=== PATIENT | male | born 1990 | race Asian ===

== ENCOUNTER 2019-10-11 17:21 | Inpatient (IN) | payer MEDICAID ==
[~2019-10-11] VITALS: Ht 167.6 cm; Wt 61.0 kg
[2019-10-11 20:00] VITALS: BP 136/79
[2019-10-11] MEDS ORDERED: ZOLPIDEM TARTRATE 5 MG TABLET PO PRN (20:45)
[2019-10-11] MEDS ORDERED: ONDANSETRON HCL 4 MG/2 ML VIAL IVP PRN (20:45)
[2019-10-11] MEDS ORDERED: BISACODYL 10 MG RECTAL RECTAL SUPPOSITORY PR PRN (20:45)
[2019-10-11] MEDS ORDERED: HYDROCODONE/ACETAMINOPHEN 5-325 MG TABLET PO PRN (20:45)
[2019-10-11] MEDS ORDERED: LORazepam 2 MG/ML VIAL IM PRN (20:45)
[2019-10-11] MEDS ORDERED: ACETAMINOPHEN 325 MG TABLET PO PRN (20:45)
[2019-10-11] MEDS ORDERED: MORPHINE SULFATE 2 MG/ML SYRINGE IVP PRN (20:45)
[2019-10-11] MEDS ORDERED: MAGNESIUM HYDROXIDE SUSPENSION 30 ML UDCUP PO PRN (20:45)
[2019-10-11] MEDS: DOCUSATE SODIUM 100 MG CAPSULE PO SCH (21:00)
[2019-10-11] MEDS ORDERED: SODIUM CHLORIDE 0.9% 250 ML IV ONE (21:39)
[2019-10-11] MEDS: PHENYTOIN SODIUM 200 MG in SODIUM CHLORIDE 0.9% 100 ML IV SCH (21:43)
[2019-10-11] MEDS: PHENobarbital SODIUM 65 MG/ML VIAL IVP SCH (21:51)
[2019-10-11] MEDS: LevETIRAcetam 1,500 MG in DEXTROSE 5%-WATER 100 ML IV SCH (22:26)
[2019-10-11] MEDS: PIPERACILLIN SODIUM/TAZOBACTAM 4.5 GM in DEXTROSE 5%-WATER 100 ML IV SCH (22:26)
[2019-10-12] VITALS: BP 139/70
[2019-10-12] MEDS: HEPARIN SODIUM,PORCINE 5,000 UNITS/ML VIAL SQ SCH ×4 (01:01→23:56)
[2019-10-12 04:00] VITALS: BP 123/75
[2019-10-12] MEDS: PIPERACILLIN SODIUM/TAZOBACTAM 4.5 GM in DEXTROSE 5%-WATER 100 ML IV SCH ×3 (04:40→16:47)
[2019-10-12 05:39] LABS: BASOPHILS % (AUTO) 0.8 % (0.0-2.0); EOSINOPHILS % (AUTO) 4.5 % (1.0-6.0); HEMATOCRIT 43.8 % (41-53); HEMOGLOBIN 14.7 g/dL (13.5-17.5); LYMPHOCYTES % (AUTO) 14.9 % (22.0-44.0); MEAN CORPUSCULAR HEMOGLOBIN 31.2 pg (26.0-34.0); MEAN CORPUSCULAR HGB CONC 33.5 G/dL (31.0-37.0); MEAN CORPUSCULAR VOLUME 93 fL (80-100); MONOCYTES % (AUTO) 15.1 % (2.0-9.0); NEUTROPHILS # (AUTO) 4.2 K/uL (1.8-7.7); NEUTROPHILS % (AUTO) 64.7 % (40.0-70.0); PLATELET COUNT (AUTO) 205 K/uL (150-450); RED CELL DISTRIBUTION WIDTH 12.8 % (11.5-14.5)
[2019-10-12 05:47] LABS: ANION GAP 17 mmol/L (8-16); CALCIUM, TOTAL 9.1 mg/dL (8.8-10.5); CARBON DIOXIDE 21 mmol/L (22-29); CHLORIDE 98 mmol/L (98-107); CREATININE 0.86 mg/dL (0.60-1.30); GLOMERULAR FILTR. RATE CALC > 60 mL/min (>60); GLUCOSE,RANDOM 108 mg/dL (70-110); POTASSIUM 3.2 mmol/L (3.5-5.1); SODIUM SERUM 136 mmol/L (136-145); UREA NITROGEN, BLOOD 6 mg/dL (7-18)
[2019-10-12 08:00] VITALS: BP 126/89
[2019-10-12] MEDS: PHENYTOIN SODIUM 200 MG in SODIUM CHLORIDE 0.9% 100 ML IV SCH ×2 (09:58→22:13)
[2019-10-12] MEDS: PANTOPRAZOLE SODIUM 40 MG DR TABLET PO SCH (09:59)
[2019-10-12] MEDS: LevETIRAcetam 1,500 MG in DEXTROSE 5%-WATER 100 ML IV SCH ×2 (09:59→23:41)
[2019-10-12] MEDS: DOCUSATE SODIUM 100 MG CAPSULE PO SCH ×2 (09:59→22:13)
[2019-10-12] MEDS: PHENobarbital SODIUM 65 MG/ML VIAL IVP SCH ×2 (11:52→22:13)
[2019-10-12] MEDS: POTASSIUM CHL 10 MEQ/WATER 50 ML IV PRN ×3 (11:53→14:44)
[2019-10-12 12:00] VITALS: BP 136/92
[2019-10-12 14:35] VITALS: BP 121/76
[2019-10-12 19:22] VITALS: BP 124/76
[2019-10-12] MEDS: POTASSIUM CHLORIDE 20 MEQ ER TABLET PO PRN (22:14)
[2019-10-13] MEDS: PIPERACILLIN SODIUM/TAZOBACTAM 4.5 GM in DEXTROSE 5%-WATER 100 ML IV SCH ×3 (00:07→10:26)
[2019-10-13 00:17] VITALS: BP 128/75
[2019-10-13 04:46] VITALS: BP 127/79
[2019-10-13 07:20] LABS: BASOPHILS % (AUTO) 1.2 % (0.0-2.0); EOSINOPHILS % (AUTO) 4.8 % (1.0-6.0); HEMATOCRIT 43.5 % (41-53); HEMOGLOBIN 14.8 g/dL (13.5-17.5); LYMPHOCYTES % (AUTO) 19.6 % (22.0-44.0); MEAN CORPUSCULAR HEMOGLOBIN 31.4 pg (26.0-34.0); MEAN CORPUSCULAR VOLUME 92 fL (80-100); MONOCYTES % (AUTO) 19.8 % (2.0-9.0); NEUTROPHILS # (AUTO) 2.7 K/uL (1.8-7.7); NEUTROPHILS % (AUTO) 54.6 % (40.0-70.0); PLATELET COUNT (AUTO) 200 K/uL (150-450); RED BLOOD CELL COUNT(AUTO) 4.71 MIL/uL (4.50-5.90); RED CELL DISTRIBUTION WIDTH 12.8 % (11.5-14.5)
[2019-10-13 07:21] VITALS: BP 117/88
[2019-10-13 07:32] LABS: ANION GAP 10 mmol/L (8-16); CALCIUM, TOTAL 8.7 mg/dL (8.8-10.5); CARBON DIOXIDE 26 mmol/L (22-29); CHLORIDE 101 mmol/L (98-107); CREATININE 0.87 mg/dL (0.60-1.30); GLOMERULAR FILTR. RATE CALC > 60 mL/min (>60); GLUCOSE,RANDOM 102 mg/dL (70-110); POTASSIUM 3.7 mmol/L (3.5-5.1); SODIUM SERUM 137 mmol/L (136-145); UREA NITROGEN, BLOOD 8 mg/dL (7-18)
[2019-10-13] MEDS: HEPARIN SODIUM,PORCINE 5,000 UNITS/ML VIAL SQ SCH ×3 (08:00→16:24)
[2019-10-13] MEDS: DOCUSATE SODIUM 100 MG CAPSULE PO SCH ×2 (08:35→21:02)
[2019-10-13] MEDS: PHENYTOIN SODIUM 200 MG in SODIUM CHLORIDE 0.9% 100 ML IV SCH (08:35)
[2019-10-13] MEDS: PANTOPRAZOLE SODIUM 40 MG DR TABLET PO SCH (08:35)
[2019-10-13] MEDS: PHENobarbital SODIUM 65 MG/ML VIAL IVP SCH ×2 (09:57→21:02)
[2019-10-13] MEDS: LevETIRAcetam 1,500 MG in DEXTROSE 5%-WATER 100 ML IV SCH (10:01)
[2019-10-13 11:54] VITALS: BP 110/73
[2019-10-13 15:16] VITALS: BP 120/69
[2019-10-13] MEDS: PIPERACILLIN/TAZO 3.375 GM/D5W 50 ML IV SCH ×2 (16:24→22:17)
[2019-10-13] MEDS ORDERED: SODIUM CHLORIDE 0.9% 100 ML ONE (16:42)
[2019-10-13 20:53] VITALS: BP 119/74
[2019-10-13] MEDS: PHENYTOIN SODIUM 100 MG ER CAPSULE PO SCH (21:02)
[2019-10-13] MEDS: LevETIRAcetam 500 MG TABLET PO SCH (21:03)
[2019-10-14] MEDS: HEPARIN SODIUM,PORCINE 5,000 UNITS/ML VIAL SQ SCH ×3 (00:02→16:38)
[2019-10-14 00:12] VITALS: BP 118/61
[2019-10-14] MEDS: PIPERACILLIN/TAZO 3.375 GM/D5W 50 ML IV SCH ×4 (03:56→22:05)
[2019-10-14 04:48] VITALS: BP 110/63
[2019-10-14 06:49] LABS: ANION GAP 10 mmol/L (8-16); CALCIUM, TOTAL 9.2 mg/dL (8.8-10.5); CARBON DIOXIDE 27 mmol/L (22-29); CHLORIDE 98 mmol/L (98-107); CREATININE 0.91 mg/dL (0.60-1.30); GLOMERULAR FILTR. RATE CALC > 60 mL/min (>60); GLUCOSE,RANDOM 97 mg/dL (70-110); PHENYTOIN (DILANTIN) 16.3 mcg/mL (10.0-20.0); POTASSIUM 3.3 mmol/L (3.5-5.1); SODIUM SERUM 135 mmol/L (136-145); UREA NITROGEN, BLOOD 9 mg/dL (7-18)
[2019-10-14 07:09] LABS: BASOPHILS % (AUTO) 0.8 % (0.0-2.0); EOSINOPHILS % (AUTO) 5.4 % (1.0-6.0); HEMATOCRIT 41.7 % (41-53); HEMOGLOBIN 13.7 g/dL (13.5-17.5); LYMPHOCYTES # (AUTO) 1.3 K/uL (1.0-4.8); LYMPHOCYTES % (AUTO) 28.6 % (22.0-44.0); MEAN CORPUSCULAR HEMOGLOBIN 30.8 pg (26.0-34.0); MEAN CORPUSCULAR VOLUME 93 fL (80-100); MONOCYTES # (AUTO) 1.1 K/uL (0.1-1.0); MONOCYTES % (AUTO) 22.9 % (2.0-9.0); NEUTROPHILS % (AUTO) 42.3 % (40.0-70.0); PLATELET COUNT (AUTO) 206 K/uL (150-450); RED BLOOD CELL COUNT(AUTO) 4.47 MIL/uL (4.50-5.90); RED CELL DISTRIBUTION WIDTH 12.9 % (11.5-14.5)
[2019-10-14 08:00] VITALS: BP 104/57
[2019-10-14] MEDS: PHENYTOIN SODIUM 100 MG ER CAPSULE PO SCH ×2 (09:10→20:07)
[2019-10-14] MEDS: PANTOPRAZOLE SODIUM 40 MG DR TABLET PO SCH (09:10)
[2019-10-14] MEDS: DOCUSATE SODIUM 100 MG CAPSULE PO SCH ×2 (09:10→20:06)
[2019-10-14] MEDS: POTASSIUM CHLORIDE 20 MEQ ER TABLET PO PRN (09:10)
[2019-10-14] MEDS: LevETIRAcetam 500 MG TABLET PO SCH ×2 (09:10→20:06)
[2019-10-14] MEDS: PHENobarbital SODIUM 65 MG/ML VIAL IVP SCH ×2 (10:03→20:06)
[2019-10-14 19:39] VITALS: BP 111/61
[2019-10-14] MEDS ORDERED: LORazepam 2 MG/ML VIAL IVP PRN (20:45)
[2019-10-15 00:04] VITALS: BP 112/76
[2019-10-15] MEDS: HEPARIN SODIUM,PORCINE 5,000 UNITS/ML VIAL SQ SCH ×2 (01:11→08:58)
[2019-10-15] MEDS: PIPERACILLIN/TAZO 3.375 GM/D5W 50 ML IV SCH ×2 (03:01→09:00)
[2019-10-15 04:22] VITALS: BP 140/80
[2019-10-15 07:38] LABS: ANION GAP 13 mmol/L (8-16); CALCIUM, TOTAL 9.1 mg/dL (8.8-10.5); CARBON DIOXIDE 25 mmol/L (22-29); CHLORIDE 98 mmol/L (98-107); CREATININE 0.79 mg/dL (0.60-1.30); GLOMERULAR FILTR. RATE CALC > 60 mL/min (>60); GLUCOSE,RANDOM 97 mg/dL (70-110); POTASSIUM 3.4 mmol/L (3.5-5.1); SODIUM SERUM 136 mmol/L (136-145); UREA NITROGEN, BLOOD 9 mg/dL (7-18)
[2019-10-15 08:00] VITALS: BP 114/71
[2019-10-15] MEDS: PHENobarbital SODIUM 65 MG/ML VIAL IVP SCH (08:59)
[2019-10-15] MEDS: PHENYTOIN SODIUM 100 MG ER CAPSULE PO SCH (08:59)
[2019-10-15] MEDS: PANTOPRAZOLE SODIUM 40 MG DR TABLET PO SCH (08:59)
[2019-10-15] MEDS: POTASSIUM CHLORIDE 20 MEQ ER TABLET PO PRN (08:59)
[2019-10-15] MEDS: DOCUSATE SODIUM 100 MG CAPSULE PO SCH (09:00)
[2019-10-15] MEDS ORDERED: LevETIRAcetam 250 MG TABLET PO SCH (09:00)
[2019-10-15] MEDS ORDERED: LevETIRAcetam 500 MG TABLET PO ONE (10:00)
[2019-10-15] MEDS ORDERED: LevETIRAcetam 500 MG TABLET PO SCH (21:00)
== END 2019-10-15 15:35 | DRG 53 ==
LOC: ICU 19:20 → 5S 10-12 13:30
PROVIDERS: ADMIT Internal Medicine; ATTEND Internal Medicine
DX: G40.909 Epilepsy, unspecified, not intractable, without status epilepticus (principal); J96.00 Acute respiratory failure, unspecified whether with hypoxia or hypercapnia; J69.0 Pneumonitis due to inhalation of food and vomit; G93.41 Metabolic encephalopathy; E87.6 Hypokalemia
CPT/HCPCS: 70544; 84132; 87081; 92610; 97116; 97162; 97166; 97530; 97535; G0378; G0482; J0712; J1165; J1644; J2543; J2560; J3480; J7050; J7060

== ENCOUNTER 2019-10-15 15:39 | Inpatient (IN) | payer MEDICAID ==
[~2019-10-15] VITALS: Ht 167.6 cm; Wt 60.3 kg
[2019-10-15 15:45] VITALS: BP 128/74
[2019-10-15] MEDS ORDERED: ACETAMINOPHEN 325 MG TABLET PO PRN (17:00)
[2019-10-15] MEDS ORDERED: PNEUMOCOCCAL VACCINE POLYVALENT 0.5 ML VIAL [PPSV23] IM ONE (20:00)
[2019-10-15] MEDS ORDERED: INFLUENZA VIRUS VACCINE QVS 2019-20 (3YR+)/PF 60 MCG/0.5 ML SYRINGE IM ONE (20:00)
[2019-10-15] MEDS: SENNA 187 MG TABLET PO SCH ×2 (20:34→21:00)
[2019-10-15] MEDS: DOCUSATE SODIUM 100 MG CAPSULE PO SCH ×2 (20:34→21:00)
[2019-10-15] MEDS: PHENYTOIN SODIUM 100 MG ER CAPSULE PO SCH (20:34)
[2019-10-15] MEDS: HEPARIN SODIUM,PORCINE 5,000 UNITS/ML VIAL SQ SCH (20:35)
[2019-10-15] MEDS: CLINDAMYCIN HCL 300 MG CAPSULE PO SCH (20:35)
[2019-10-15] MEDS: LevETIRAcetam 500 MG TABLET PO SCH (20:35)
[2019-10-15] MEDS: PHENobarbital 30 MG TABLET PO SCH (20:35)
[2019-10-15] MEDS: MELATONIN 3 MG TABLET PO PRN (21:44)
[2019-10-15 23:00] VITALS: BP_SYST 107; BP_SYST 115; BP_DIAS 64; BP_DIAS 68
[2019-10-15] MEDS: 0.9% SODIUM CHLORIDE 10 ML SYRINGE IVP SCH (23:20)
[2019-10-16 06:54] LABS: BASOPHILS % (AUTO) 1.6 % (0.0-2.0); EOSINOPHILS % (AUTO) 4.7 % (1.0-6.0); HEMATOCRIT 42.7 % (41-53); HEMOGLOBIN 14.5 g/dL (13.5-17.5); LYMPHOCYTES # (AUTO) 0.9 K/uL (1.0-4.8); LYMPHOCYTES % (AUTO) 30.5 % (22.0-44.0); MEAN CORPUSCULAR HEMOGLOBIN 31.5 pg (26.0-34.0); MEAN CORPUSCULAR HGB CONC 34.1 G/dL (31.0-37.0); MEAN CORPUSCULAR VOLUME 93 fL (80-100); MONOCYTES # (AUTO) 0.8 K/uL (0.1-1.0); MONOCYTES % (AUTO) 26.8 % (2.0-9.0); NEUTROPHILS # (AUTO) 1.1 K/uL (1.8-7.7); NEUTROPHILS % (AUTO) 36.4 % (40.0-70.0); PLATELET COUNT (AUTO) 180 K/uL (150-450); RED BLOOD CELL COUNT(AUTO) 4.61 MIL/uL (4.50-5.90); RED CELL DISTRIBUTION WIDTH 12.5 % (11.5-14.5)
[2019-10-16 07:09] LABS: ALANINE AMINOTRANSFERASE 78 U/L (12-78); ALBUMIN 3.4 g/dL (3.4-5.0); ALKALINE PHOSPHATASE 133 U/L (46-116); ANION GAP 7 mmol/L (8-16); ASPARTATE AMINOTRANSFERASE 29 U/L (15-37); BILIRUBIN,TOTAL 0.3 mg/dL (0.1-1.0); CALCIUM, TOTAL 8.8 mg/dL (8.8-10.5); CARBON DIOXIDE 27 mmol/L (22-29); CHLORIDE 99 mmol/L (98-107); CREATININE 0.89 mg/dL (0.60-1.30); GLOMERULAR FILTR. RATE CALC > 60 mL/min (>60); GLUCOSE,RANDOM 104 mg/dL (70-110); POTASSIUM 3.7 mmol/L (3.5-5.1); SODIUM SERUM 133 mmol/L (136-145); TOTAL PROTEIN, SERUM 8.2 g/dL (6.4-8.2); UREA NITROGEN, BLOOD 8 mg/dL (7-18)
[2019-10-16 07:59] VITALS: BP 127/64
[2019-10-16] MEDS: PHENobarbital 30 MG TABLET PO SCH ×2 (08:38→21:09)
[2019-10-16] MEDS: PHENYTOIN SODIUM 100 MG ER CAPSULE PO SCH ×2 (08:38→21:09)
[2019-10-16] MEDS: LevETIRAcetam 500 MG TABLET PO SCH ×2 (08:38→21:10)
[2019-10-16] MEDS: HEPARIN SODIUM,PORCINE 5,000 UNITS/ML VIAL SQ SCH ×2 (08:38→21:12)
[2019-10-16] MEDS: CLINDAMYCIN HCL 300 MG CAPSULE PO SCH ×3 (08:38→21:10)
[2019-10-16] MEDS: PANTOPRAZOLE SODIUM 40 MG DR TABLET PO SCH (08:39)
[2019-10-16] MEDS: LEVOFLOXACIN 750 MG TABLET PO SCH (08:39)
[2019-10-16] MEDS: 0.9% SODIUM CHLORIDE 10 ML SYRINGE IVP SCH ×2 (08:40→15:42)
[2019-10-16] MEDS: DOCUSATE SODIUM 100 MG CAPSULE PO SCH ×2 (09:00→21:00)
[2019-10-16 14:39] LABS: APPEARANCE,URINE CLEAR (CLEAR); BILIRUBIN,URINE NEGATIVE (NEGATIVE); GLUCOSE, URINE (UA) NEGATIVE (NEGATIVE); KETONES,URINE NEGATIVE (NEGATIVE); LEUKOCYTE ESTERASE ,URINE NEGATIVE (NEGATIVE); NITRATE,URINE NEGATIVE (NEGATIVE); OCCULT BLOOD,URINE SMALL (NEGATIVE); PH,URINE 6.5 (5.0-8.0); PROTEIN,URINE NEGATIVE (NEGATIVE); UROBILINOGEN,URINE 0.2 mg/dL (<=1.0)
[2019-10-16 14:48] LABS: OSMOLALITY,URINE 34 mOS/kg (50-1200)
[2019-10-16 14:52] LABS: BACTERIA,URINE None Seen /HPF (None Seen); RBC,URINE 0-2 /HPF (0-2); SQUAMOUS EPITHELIAL CELL,UR Rare /LPF (None Seen); WBC,URINE None Seen /HPF (0-5)
[2019-10-16 16:04] VITALS: BP 119/66
[2019-10-16] MEDS: HYDROCORTISONE 1% 30 GM OINTMENT TP PRN (16:19)
[2019-10-16 16:51] LABS: SODIUM,URINE RANDOM < 5 mmol/l (20-110)
[2019-10-16] MEDS: SENNA 187 MG TABLET PO SCH (21:00)
[2019-10-17 02:37] VITALS: BP 122/65
[2019-10-17] MEDS: 0.9% SODIUM CHLORIDE 10 ML SYRINGE IVP SCH ×4 (03:16→23:03)
[2019-10-17 07:36] VITALS: BP 111/64
[2019-10-17] MEDS: PANTOPRAZOLE SODIUM 40 MG DR TABLET PO SCH (07:53)
[2019-10-17] MEDS: CLINDAMYCIN HCL 300 MG CAPSULE PO SCH ×3 (07:53→20:21)
[2019-10-17] MEDS: HEPARIN SODIUM,PORCINE 5,000 UNITS/ML VIAL SQ SCH ×2 (07:53→20:19)
[2019-10-17] MEDS: PHENobarbital 30 MG TABLET PO SCH ×2 (07:53→20:21)
[2019-10-17] MEDS: PHENYTOIN SODIUM 100 MG ER CAPSULE PO SCH ×2 (07:53→20:21)
[2019-10-17] MEDS: LEVOFLOXACIN 750 MG TABLET PO SCH (07:53)
[2019-10-17] MEDS: LevETIRAcetam 500 MG TABLET PO SCH (07:53)
[2019-10-17] MEDS: DOCUSATE SODIUM 100 MG CAPSULE PO SCH ×2 (07:54→20:21)
[2019-10-17 15:30] VITALS: BP 121/84
[2019-10-17] MEDS: MULTIVITAMINS WITH MINERALS, THERAPEUTIC TABLET PO SCH (16:05)
[2019-10-17] MEDS: HYDROCORTISONE 1% 30 GM OINTMENT TP PRN (18:52)
[2019-10-17] MEDS: MELATONIN 3 MG TABLET PO PRN (20:21)
[2019-10-17] MEDS: SENNA 187 MG TABLET PO SCH (20:22)
[2019-10-17 20:34] VITALS: BP 117/80
[2019-10-17 23:34] VITALS: BP 104/70
[2019-10-18 07:22] VITALS: BP 122/96
[2019-10-18] MEDS: PANTOPRAZOLE SODIUM 40 MG DR TABLET PO SCH (07:51)
[2019-10-18] MEDS: DOCUSATE SODIUM 100 MG CAPSULE PO SCH ×3 (07:51→20:14)
[2019-10-18] MEDS: LevETIRAcetam 500 MG TABLET PO SCH (07:51)
[2019-10-18] MEDS: LEVOFLOXACIN 750 MG TABLET PO SCH (07:51)
[2019-10-18] MEDS: PHENYTOIN SODIUM 100 MG ER CAPSULE PO SCH ×2 (07:51→20:11)
[2019-10-18] MEDS: MULTIVITAMINS WITH MINERALS, THERAPEUTIC TABLET PO SCH (07:51)
[2019-10-18] MEDS: PHENobarbital 30 MG TABLET PO SCH ×2 (07:51→20:14)
[2019-10-18] MEDS: CLINDAMYCIN HCL 300 MG CAPSULE PO SCH ×2 (07:51→16:18)
[2019-10-18] MEDS: 0.9% SODIUM CHLORIDE 10 ML SYRINGE IVP SCH ×2 (07:53→16:18)
[2019-10-18] MEDS: HEPARIN SODIUM,PORCINE 5,000 UNITS/ML VIAL SQ SCH ×2 (07:55→20:11)
[2019-10-18 08:36] LABS: MAGNESIUM 1.7 mg/dL (1.80-2.40); PHOSPHORUS 3.2 mg/dL (2.5-4.9)
[2019-10-18 10:26] LABS: THYROID STIMULATING HORMONE 1.34 uIU/mL (0.36-3.74)
[2019-10-18 15:30] VITALS: BP 128/82
[2019-10-18] MEDS: SENNA 187 MG TABLET PO SCH ×3 (20:11→21:00)
[2019-10-18] MEDS: LACOSAMIDE 100 MG TABLET PO SCH (20:14)
[2019-10-19] MEDS: 0.9% SODIUM CHLORIDE 10 ML SYRINGE IVP SCH ×4 (01:42→23:54)
[2019-10-19 02:01] VITALS: BP 130/81
[2019-10-19 07:00] VITALS: BP 109/66
[2019-10-19 07:47] LABS: HEMATOCRIT 43.7 % (41-53); HEMOGLOBIN 14.9 g/dL (13.5-17.5); MEAN CORPUSCULAR HEMOGLOBIN 31.4 pg (26.0-34.0); MEAN CORPUSCULAR VOLUME 92 fL (80-100); PLATELET COUNT (AUTO) 140 K/uL (150-450); RED BLOOD CELL COUNT(AUTO) 4.74 MIL/uL (4.50-5.90); RED CELL DISTRIBUTION WIDTH 13.1 % (11.5-14.5)
[2019-10-19] MEDS: LACOSAMIDE 100 MG TABLET PO SCH ×2 (08:43→19:37)
[2019-10-19] MEDS: MULTIVITAMINS WITH MINERALS, THERAPEUTIC TABLET PO SCH (08:43)
[2019-10-19] MEDS: PHENobarbital 30 MG TABLET PO SCH ×2 (08:44→19:37)
[2019-10-19] MEDS: PHENYTOIN SODIUM 100 MG ER CAPSULE PO SCH ×2 (08:44→19:37)
[2019-10-19] MEDS: HEPARIN SODIUM,PORCINE 5,000 UNITS/ML VIAL SQ SCH (08:45)
[2019-10-19] MEDS: PANTOPRAZOLE SODIUM 40 MG DR TABLET PO SCH (08:45)
[2019-10-19] MEDS: DOCUSATE SODIUM 100 MG CAPSULE PO SCH ×2 (09:00→19:26)
[2019-10-19 09:27] LABS: BAND NEUTROPHILS % (MANUAL) 3 % (0-5); EOSINOPHILS % (MANUAL) 5 % (1-6); LYMPHOCYTES % (MANUAL) 30 % (22-44); MONOCYTES % (MANUAL) 17 % (2-9); SEGMENTED NEUTROPHILS % 45 % (40-70)
[2019-10-19 16:00] VITALS: BP 130/76
[2019-10-19] MEDS: SENNA 187 MG TABLET PO SCH (19:36)
[2019-10-20] VITALS: BP 126/72
[2019-10-20 07:00] VITALS: BP 102/71
[2019-10-20] MEDS: PHENYTOIN SODIUM 100 MG ER CAPSULE PO SCH ×2 (07:32→19:37)
[2019-10-20] MEDS: MULTIVITAMINS WITH MINERALS, THERAPEUTIC TABLET PO SCH (07:32)
[2019-10-20] MEDS: PANTOPRAZOLE SODIUM 40 MG DR TABLET PO SCH (07:32)
[2019-10-20] MEDS: 0.9% SODIUM CHLORIDE 10 ML SYRINGE IVP SCH ×3 (07:33→23:03)
[2019-10-20] MEDS: PHENobarbital 30 MG TABLET PO SCH (07:33)
[2019-10-20] MEDS: DOCUSATE SODIUM 100 MG CAPSULE PO SCH ×2 (09:00→19:35)
[2019-10-20 09:23] LABS: BASOPHILS % (AUTO) 1.2 % (0.0-2.0); EOSINOPHILS % (AUTO) 7.5 % (1.0-6.0); HEMATOCRIT 44.3 % (41-53); LYMPHOCYTES # (AUTO) 0.5 K/uL (1.0-4.8); LYMPHOCYTES % (AUTO) 21.6 % (22.0-44.0); MEAN CORPUSCULAR HEMOGLOBIN 31.2 pg (26.0-34.0); MEAN CORPUSCULAR HGB CONC 33.8 G/dL (31.0-37.0); MEAN CORPUSCULAR VOLUME 92 fL (80-100); MONOCYTES # (AUTO) 0.4 K/uL (0.1-1.0); MONOCYTES % (AUTO) 18.7 % (2.0-9.0); NEUTROPHILS # (AUTO) 1.2 K/uL (1.8-7.7); PLATELET COUNT (AUTO) 145 K/uL (150-450)
[2019-10-20 15:02] VITALS: BP_SYST 108
[2019-10-20] MEDS: SENNA 187 MG TABLET PO SCH (19:35)
[2019-10-20 23:00] VITALS: BP 115/69
[2019-10-21 06:59] LABS: EOSINOPHILS % (AUTO) 9.9 % (1.0-6.0); HEMATOCRIT 41.6 % (41-53); LYMPHOCYTES # (AUTO) 0.7 K/uL (1.0-4.8); LYMPHOCYTES % (AUTO) 23.4 % (22.0-44.0); MEAN CORPUSCULAR HEMOGLOBIN 31.1 pg (26.0-34.0); MEAN CORPUSCULAR HGB CONC 33.6 G/dL (31.0-37.0); MEAN CORPUSCULAR VOLUME 92 fL (80-100); MONOCYTES # (AUTO) 0.6 K/uL (0.1-1.0); MONOCYTES % (AUTO) 21.4 % (2.0-9.0); NEUTROPHILS # (AUTO) 1.3 K/uL (1.8-7.7); NEUTROPHILS % (AUTO) 44.3 % (40.0-70.0); PLATELET COUNT (AUTO) 152 K/uL (150-450); RED CELL DISTRIBUTION WIDTH 13.4 % (11.5-14.5)
[2019-10-21 07:10] LABS: ANION GAP 9 mmol/L (8-16); CALCIUM, TOTAL 8.9 mg/dL (8.8-10.5); CARBON DIOXIDE 27 mmol/L (22-29); CHLORIDE 97 mmol/L (98-107); CREATININE 1.05 mg/dL (0.60-1.30); GLOMERULAR FILTR. RATE CALC > 60 mL/min (>60); GLUCOSE,RANDOM 102 mg/dL (70-110); POTASSIUM 4.3 mmol/L (3.5-5.1); SODIUM SERUM 133 mmol/L (136-145); UREA NITROGEN, BLOOD 12 mg/dL (7-18)
[2019-10-21 07:26] VITALS: BP 105/65
[2019-10-21] MEDS: DOCUSATE SODIUM 100 MG CAPSULE PO SCH ×2 (08:47→21:00)
[2019-10-21] MEDS: MULTIVITAMINS WITH MINERALS, THERAPEUTIC TABLET PO SCH (08:49)
[2019-10-21] MEDS: PANTOPRAZOLE SODIUM 40 MG DR TABLET PO SCH (08:49)
[2019-10-21] MEDS: PHENYTOIN SODIUM 100 MG ER CAPSULE PO SCH ×2 (08:49→21:20)
[2019-10-21] MEDS: PHENobarbital 30 MG TABLET PO SCH (08:49)
[2019-10-21 10:00] VITALS: BP 110/59
[2019-10-21 15:30] VITALS: BP 110/69
[2019-10-21] MEDS: 0.9% SODIUM CHLORIDE 10 ML SYRINGE IVP SCH ×2 (16:00→16:56)
[2019-10-21] MEDS: SENNA 187 MG TABLET PO SCH (21:00)
[2019-10-22] MEDS ORDERED: PHENY100 PO (02:26)
[2019-10-22] MEDS ORDERED: PANT40TA25 PO (02:26)
[2019-10-22] MEDS ORDERED: MULT-248 PO (02:26)
[2019-10-22] MEDS: 0.9% SODIUM CHLORIDE 10 ML SYRINGE IVP SCH ×2 (04:24→08:37)
[2019-10-22 04:26] VITALS: BP 108/64
[2019-10-22 07:50] VITALS: BP 128/73
[2019-10-22] MEDS: PHENobarbital 30 MG TABLET PO SCH (08:36)
[2019-10-22] MEDS: PANTOPRAZOLE SODIUM 40 MG DR TABLET PO SCH (08:37)
[2019-10-22] MEDS: PHENYTOIN SODIUM 100 MG ER CAPSULE PO SCH (08:37)
[2019-10-22] MEDS: MULTIVITAMINS WITH MINERALS, THERAPEUTIC TABLET PO SCH (08:37)
[2019-10-22] MEDS: DOCUSATE SODIUM 100 MG CAPSULE PO SCH (08:38)
== END 2019-10-22 12:00 | disposition home or self-care (01) | DRG 53 ==
LOC: 2WR 15:39 → 4E 10-21 11:15
PROVIDERS: ADMIT Physical Medicine & Rehabilitation; ATTEND Physical Medicine & Rehabilitation
DX: G40.802 Other epilepsy, not intractable, without status epilepticus (principal); D70.9 Neutropenia, unspecified; E87.1 Hypo-osmolality and hyponatremia; Z79.899 Other long term (current) drug therapy; Z03.818 Encounter for observation for suspected exposure to other biological agents ruled out
CPT/HCPCS: 83735; 83935; 84100; 84132; 84300; 84443; 87081; 87635; 92507; 92523; 97110; 97112; 97116; 97163; 97530; 97535; 99366; J1644

== ENCOUNTER 2020-07-11 23:15 | Emergency (ER) | payer MEDICAID ==
[~2020-07-11 23:15] MED LIST: MULT-248 PO; PANT-31 PO; PHENY100 PO
== END 2020-07-11 23:19 | disposition home or self-care (01) ==
LOC: EMS 23:19
DX: R06.02 Shortness of breath (principal); Z53.21 Procedure and treatment not carried out due to patient leaving prior to being seen by health care provider